=== PATIENT | female | born 1985 | race African-American/Black ===

== ENCOUNTER 2020-07-06 10:27 | Outpatient (CLI) | payer OTHER ==
[2020-07-06 20:41] LABS: SARS-CoV-2 PCR by NAA Not Detected (NotDetected)
== END 2020-07-06 10:28 | disposition home or self-care (01) ==
LOC: CSHLAB 10:27
PROVIDERS: ATTEND Physician Assistant
DX: Z20.822 Contact with and (suspected) exposure to COVID-19 (principal); E04.1 Nontoxic single thyroid nodule; R13.10 Dysphagia, unspecified
CPT/HCPCS: 87635; U0003; U0005

== ENCOUNTER 2020-07-09 12:25 | Outpatient (CLI) | payer OTHER | END 2020-07-09 12:26 | disposition home or self-care (01) | LOC: CSHRAD 12:25 | PROVIDERS: ATTEND Physician Assistant | DX: E04.1 Nontoxic single thyroid nodule (principal); R13.10 Dysphagia, unspecified | CPT/HCPCS: 74220; 76536 ==

== ENCOUNTER 2020-07-09 17:10 | Emergency (ER) | payer OTHER ==
[2020-07-09] MEDS ORDERED: Ondansetron PF 4 MG/2 ML Vial ONE (18:30)
[2020-07-09] MEDS ORDERED: Morphine 4 MG/ML VIAL ONE (18:30)
[2020-07-09 19:58] LABS: #Basophils 0.1 10x3/uL (0.0-0.2); #Eosinphils 0.2 10x3/uL (0.0-0.5); #Monocytes 0.4 10x3/uL (0.0-1.1); #Neutrophils 5.7 10x3/uL (1.5-8.4); %Basophils 0.5 % (0.0-2.0); %Eosinophils 1.8 % (0.0-6.0); %Lymphocytes 37.8 % (18.0-47.0); %Monocytes 3.6 % (0.0-10.0); %Neutrophils 56.1 % (40.0-75.0); Hemoglobin 11.7 g/dL (12.0-15.5); Mean Corpuscular HGB CONC 32.8 g/dL (32.0-36.0); Mean Corpuscular Hemoglobin 23.2 pg (27.0-33.0); Mean Corpuscular Volume 70.8 fl (81.6-98.3); Mean Platelet Volume 12.9 fl (7.4-10.4); Platelet Count 251 10x3/uL (150-450); RBC Distribution Width 15.2 % (11.5-14.5); Red Blood Cell (RBC) Count 5.04 10x6/uL (3.90-5.03); White Blood Cell (WBC) Count 10.1 10x3/uL (3.5-10.5)
[2020-07-09] MEDS ORDERED: Lorazepam 2 MG/ML VIAL ONE (19:59)
[2020-07-09 20:05] LABS: ALT (SGPT) 10 U/L (8-55); AST (SGOT) 15 U/L (5-34); Albumin 4.1 g/dL (3.5-5.0); Alkaline Phosphatase 60 U/L (40-110); Anion Gap 13 mmol/L (10-20); BUN (Urea Nitrogen) 6 mg/dL (7.0-18.7); Bilirubin, Total 0.3 mg/dL (0.2-1.2); Calc. Creatinine Clearance 0 mL/min (70-130); Calcium 9.1 mg/dL (7.8-10.44); Carbon Dioxide 24 mmol/L (22-29); Chloride 108 mmol/L (98-107); Globulin 2.8 g/dL (2.4-3.5); Glucose 77 mg/dL (70-105); Potassium 4.3 mmol/L (3.5-5.1); Protein, Total 6.9 g/dL (6.0-8.3); Sodium 141 mmol/L (136-145)
[2020-07-09 20:24] LABS: Platelet Clumps SLIGHT
== END 2020-07-09 20:35 | disposition home or self-care (01) ==
LOC: CSHERS 17:10
DX: D57.00 Hb-SS disease with crisis, unspecified (principal); M79.10 Myalgia, unspecified site; F41.9 Anxiety disorder, unspecified; F17.210 Nicotine dependence, cigarettes, uncomplicated; Z79.899 Other long term (current) drug therapy
CPT/HCPCS: 71045; 74220; 76536; 80053; 85025; 85046; 85660; 93005; 96374; 96375; J2060; J2270; J2405

== ENCOUNTER 2020-10-19 02:09 | Emergency (ER) | payer OTHER | END 2020-10-19 04:40 | disposition home or self-care (01) | LOC: CSHERS 02:09 | DX: S63.502A Unspecified sprain of left wrist, initial encounter (principal); W18.30XA Fall on same level, unspecified, initial encounter ==

== ENCOUNTER 2021-06-30 13:59 | Outpatient (CLI) | payer OTHER | END 2021-06-30 14:00 | disposition home or self-care (01) | LOC: CSHULT 13:59 | PROVIDERS: ATTEND Otolaryngology Otolaryngic Allergy | DX: E04.1 Nontoxic single thyroid nodule (principal); E04.2 Nontoxic multinodular goiter | CPT/HCPCS: 76536 ==

== ENCOUNTER 2021-11-05 17:30 | Emergency (ER) | payer BC, OTHER ==
[2021-11-05 19:03] LABS: Bilirubin Neg (Negative); Blood, Urine 50 (Negative); Clarity Slightly Cloudy (Clear); Glucose, Urine (Dipstick) Normal (Negative); Ketone, Urine Negative (Negative); Leukocyte Negative (Negative); Nitrite Negative (Negative); Protein, Urine (Dipstick) Negative (Neg-Trace); Specific Gravity, Urine 1.025 (1.002-1.036)
[2021-11-05 19:04] LABS: Pregnancy Test - Urine (BHCG) Negative (Negative)
[2021-11-05 19:05] LABS: Pregu Control Background? CLEAR/WHITE (CLR/WHITE); Pregu Control Bar Appear? YES (CONTROL BAR); Specific Gravity 1.025 (1.002-1.036)
[2021-11-05 19:15] LABS: Bacteria/HPF 2+ HPF (None Seen); RBC/HPF 0-3 HPF (0-3); WBC/HPF 0-3 HPF (0-3)
[2021-11-05] MEDS ORDERED: Ondansetron PF 4 MG/2 ML Vial ONE (20:27)
[2021-11-05] MEDS ORDERED: Ketorolac Tromethamine 30 MG/ML VIAL ONE (20:27)
[2021-11-05 20:46] LABS: #Monocytes 0.8 10x3/uL (0.0-1.1); #Neutrophils 4.2 10x3/uL (1.5-8.4); %Basophils 0.5 % (0.0-2.0); %Eosinophils 0.3 % (0.0-6.0); %Lymphocytes 18.8 % (18.0-47.0); %Monocytes 12.8 % (0.0-10.0); %Neutrophils 67.3 % (40.0-75.0); Hemoglobin 12.1 g/dL (12.0-15.5); Mean Corpuscular HGB CONC 33.6 g/dL (32.0-36.0); Mean Corpuscular Hemoglobin 23.5 pg (27.0-33.0); Mean Corpuscular Volume 69.9 fl (81.6-98.3); Mean Platelet Volume 10.6 fl (7.4-10.4); Platelet Count 283 10x3/uL (150-450); RBC Distribution Width 14.6 % (11.5-14.5); Red Blood Cell (RBC) Count 5.15 10x6/uL (3.90-5.03); White Blood Cell (WBC) Count 6.3 10x3/uL (3.5-10.5)
[2021-11-05 20:53] LABS: ALT (SGPT) 17 U/L (8-55); AST (SGOT) 17 U/L (5-34); Albumin 4.3 g/dL (3.5-5.0); Alkaline Phosphatase 67 U/L (40-110); Anion Gap 11 mmol/L (10-20); BUN (Urea Nitrogen) 7 mg/dL (7.0-18.7); Bilirubin, Total 0.2 mg/dL (0.2-1.2); Calc. Creatinine Clearance 0 mL/min (70-130); Calcium 9.4 mg/dL (7.8-10.44); Carbon Dioxide 23 mmol/L (22-29); Chloride 106 mmol/L (98-107); Estimated GFR 97; Globulin 3.2 g/dL (2.4-3.5); Glucose 97 mg/dL (70-105); Lipase 64 U/L (8-78); Potassium 3.5 mmol/L (3.5-5.1); Protein, Total 7.5 g/dL (6.0-8.3); Sodium 136 mmol/L (136-145)
[2021-11-05 22:29] LABS: Platelet Morphology Comment Appears Adequate; RBC Morphology Normal
== END 2021-11-05 21:35 | disposition home or self-care (01) ==
LOC: CSHERS 17:30
DX: R10.9 Unspecified abdominal pain (principal); M54.50 Low back pain, unspecified; R50.9 Fever, unspecified; R30.9 Painful micturition, unspecified
CPT/HCPCS: 80053; 81003; 81015; 81025; 83690; 85025; 96374; 96375; J1885; J2405

== ENCOUNTER 2022-10-19 08:19 | Emergency (ER) | payer OTHER | END 2022-10-19 09:20 | disposition home or self-care (01) | LOC: CSHERS 08:19 | DX: N76.4 Abscess of vulva (principal); F17.210 Nicotine dependence, cigarettes, uncomplicated | CPT/HCPCS: 99282 ==

== ENCOUNTER 2023-08-18 13:07 | Emergency (ER) | payer OTHER ==
[2023-08-18] MEDS ORDERED: Boostrix 0.5 ML (Tdap) VIAL (>/=7 yrs of age) ONE (13:57)
== END 2023-08-18 14:00 | disposition home or self-care (01) ==
LOC: CSHERS 13:07
DX: S61.210A Laceration without foreign body of right index finger without damage to nail, initial encounter (principal); F17.210 Nicotine dependence, cigarettes, uncomplicated; Z23 Encounter for immunization; X58.XXXA Exposure to other specified factors, initial encounter
CPT/HCPCS: 12001; 90471; 90715

== ENCOUNTER 2023-08-25 07:13 | Emergency (ER) | payer OTHER ==
[2023-08-25] MEDS ORDERED: Lidocaine 1% PF 5 ML VIAL ONE (07:50)
[2023-08-25] MEDS ORDERED: Azithromycin 250 MG TAB ONE (07:51)
[2023-08-25] MEDS ORDERED: cefTRIAXone (ROCEPHIN) 500 MG VIAL ONE (07:51)
[2023-08-25 08:35] LABS: Bilirubin Neg (Negative); Blood, Urine 10 (Negative); Clarity Slightly Cloudy (Clear); Glucose, Urine (Dipstick) Normal (Negative); Ketone, Urine Negative (Negative); Leukocyte Negative (Negative); Nitrite Negative (Negative); Protein, Urine (Dipstick) Negative (Neg-Trace); Specific Gravity, Urine 1.015 (1.005-1.030); Urobilinogen Normal mg/dL (Less than 2); pH, Urine 6.5 (5.0-9.0)
[2023-08-25 08:41] LABS: Bacteria/HPF 2+ HPF (None Seen); CAUTI Indications for Culture Pelvic or flank pain; RBC/HPF 0-3 HPF (0-3); WBC/HPF 0-3 HPF (0-3)
[2023-08-25 08:42] LABS: Yeast-Hyphae Rare HPF (None Seen)
[2023-08-25 08:47] LABS: Mucous/LPF 2+ LPF (<2+)
[2023-08-25 08:48] LABS: Urine Culture Reflex No No
[2023-08-25 08:55] LABS: HIV (1/2) Antibody/Antigen Non-Reactive (NonReactive); HIV 1/2 INDEX 0.09 S/CO (<1.00)
[2023-08-25 20:32] LABS: Chlam.trachomatis by PCR,Urine Not Detected (NotDetected); GC N.gonorrhoeae PCR,UrineVOID Not Detected (NotDetected)
== END 2023-08-25 08:22 | disposition home or self-care (01) ==
LOC: CSHERS 07:13
DX: S61.210D Laceration without foreign body of right index finger without damage to nail, subsequent encounter (principal); Z11.3 Encounter for screening for infections with a predominantly sexual mode of transmission; W26.9XXD Contact with unspecified sharp object(s), subsequent encounter
CPT/HCPCS: 36415; 81001; 87389; 87491; 87591; 96372; 99283; J0696

== ENCOUNTER 2023-09-23 08:32 | Emergency (ER) | payer OTHER ==
[2023-09-23] MEDS ORDERED: Ketorolac Tromethamine 30 MG (1 mL) VIAL ONE (08:57)
== END 2023-09-23 10:00 | disposition home or self-care (01) ==
LOC: CSHERS 08:32
DX: M79.641 Pain in right hand (principal); F17.210 Nicotine dependence, cigarettes, uncomplicated
CPT/HCPCS: 96372; J1885

== ENCOUNTER 2023-11-12 17:54 | Emergency (ER) | payer OTHER ==
[2023-11-12 18:36] LABS: #Basophils 0.04 10x3/uL (0.0-0.2); #Eosinphils 0.18 10x3/uL (0.0-0.5); #Monocytes 0.45 10x3/uL (0.0-1.1); #Neutrophils 7.87 10x3/uL (1.5-8.4); %Basophils 0.3 % (0.0-2.0); %Eosinophils 1.5 % (0.0-6.0); %Lymphocytes 30.6 % (18.0-47.0); %Monocytes 3.6 % (0.0-10.0); %Neutrophils 63.7 % (40.0-75.0); Hematocrit 33.3 % (34.9-44.5); Mean Corpuscular Hemoglobin 23.4 pg (27.0-33.0); Mean Corpuscular Volume 70.7 fL (81.6-98.3); Mean Platelet Volume 10.6 fL (7.4-10.4); Platelet Count 321 10x3/uL (150-450); RBC Distribution Width 14.5 % (11.5-14.5); Red Blood Cell (RBC) Count 4.71 10x6/uL (3.90-5.03); White Blood Cell (WBC) Count 12.4 10x3/uL (3.5-10.5)
[2023-11-12 18:48] LABS: ALT (SGPT) 12 U/L (8-55); AST (SGOT) 16 U/L (5-34); Albumin 3.9 g/dL (3.5-5.0); Alkaline Phosphatase 63 U/L (40-110); Anion Gap 11 mmol/L (10-20); BUN (Urea Nitrogen) 9 mg/dL (7.0-18.7); Bilirubin, Total 0.4 mg/dL (0.2-1.2); Calc. Creatinine Clearance 0 mL/min (70-130); Calcium 9.2 mg/dL (7.8-10.44); Carbon Dioxide 24 mmol/L (22-29); Chloride 108 mmol/L (98-107); Estimated GFR 82; Globulin 3.3 g/dL (2.4-3.5); Glucose 101 mg/dL (70-105); Potassium 3.7 mmol/L (3.5-5.1); Protein, Total 7.2 g/dL (6.0-8.3); Sodium 139 mmol/L (136-145)
[2023-11-12 18:58] LABS: BHCG - Serum Negative (NEGATIVE); Pregs Control Background? CLEAR/WHITE (CLR/WHITE); Pregs Control Bar Appear? YES (CONTROL BAR)
[2023-11-12 19:10] LABS: Bilirubin Neg (Negative); Blood, Urine 250 (Negative); Glucose, Urine (Dipstick) Normal (Negative); Ketone, Urine 5 mg/dL (Negative); Leukocyte 25 (Negative); Nitrite Positive (Negative); Protein, Urine (Dipstick) 100 mg/dl (Neg-Trace); Specific Gravity, Urine 1.015 (1.005-1.030)
[2023-11-12] MEDS ORDERED: Ketorolac Tromethamine 30 MG (1 mL) VIAL ONE (19:18)
[2023-11-12 19:29] LABS: Clarity Hazy (Clear)
[2023-11-12 19:33] LABS: Bacteria/HPF 2+ HPF (None Seen); CAUTI Indications for Culture Dysuria,urgency,freq
[2023-11-12 19:35] LABS: Urine Culture Reflex No No
== END 2023-11-12 20:10 | disposition home or self-care (01) ==
LOC: CSHERS 17:54
DX: N93.8 Other specified abnormal uterine and vaginal bleeding (principal); N39.0 Urinary tract infection, site not specified; F17.210 Nicotine dependence, cigarettes, uncomplicated
CPT/HCPCS: 80053; 81001; 84703; 85025; 96372; 99284; J1885

== ENCOUNTER 2024-03-08 20:48 | Emergency (ER) | payer OTHER ==
[2024-03-08] MEDS ORDERED: cefTRIAXone (ROCEPHIN) 500 MG VIAL ONE (21:20)
[2024-03-08] MEDS ORDERED: Azithromycin 250 MG TAB ONE (21:20)
[2024-03-08] MEDS ORDERED: metroNIDAZOLE 500 MG TAB ONE (21:20)
[2024-03-08] MEDS ORDERED: Sterile Water 10 ML ONE (21:21)
[2024-03-08 21:31] LABS: Bilirubin Neg (Negative); Blood, Urine 25 (Negative); Clarity Slightly Cloudy (Clear); Glucose, Urine (Dipstick) Normal (Negative); Ketone, Urine Negative (Negative); Leukocyte 25 (Negative); Nitrite Negative (Negative); Protein, Urine (Dipstick) 15 mg/dl (Neg-Trace); Urobilinogen Normal mg/dL (Less than 2)
[2024-03-08 21:42] LABS: Bacteria/HPF 1+ HPF (None Seen); CAUTI Indications for Culture Pelvic or flank pain; Mucous/LPF 3+ LPF (<2+); RBC/HPF 0-3 HPF (0-3)
[2024-03-08 21:43] LABS: Urine Culture Reflex No No
[2024-03-10 14:02] LABS: GC by PCR, Vaginal Swab Not Detected (NotDetected)
== END 2024-03-08 22:05 | disposition home or self-care (01) ==
LOC: CSHERS 20:48
DX: Z20.2 Contact with and (suspected) exposure to infections with a predominantly sexual mode of transmission (principal); F17.210 Nicotine dependence, cigarettes, uncomplicated; R11.2 Nausea with vomiting, unspecified
CPT/HCPCS: 81001; 87480; 87510; 87591; 87660; 96372; 99283; J0696